=== PATIENT | male | born 1990 | race Caucasian/White ===

== ENCOUNTER 2019-05-04 15:07 | Emergency (ER) | payer SELFPAY ==
[2019-05-04] MEDS: SOD CHLORIDE 0.9% 1,000 ML IV (16:28)
[2019-05-04] MEDS: FAMOTIDINE 20 MG INJ IV (16:28)
[2019-05-04] MEDS: ONDANSETRON 4 MG INJ IV (16:28)
[2019-05-04 16:34] LABS: ADD MAN DIFF? NO
[2019-05-04 16:36] LABS: ABNORMAL IP MESSAGE 1; BASOPHILS % 0.3 % (0.0-2.0); EOSINOPHILS % 0.1 % (0.0-7.0); HEMATOCRIT 43.1 % (42.0-52.0); HEMOGLOBIN 14.6 g/dl (14.0-18.0); LYMPHOCYTES # 0.6 10^3/ul (0.8-2.9); LYMPHOCYTES % 3.9 % (15.0-51.0); MEAN CORPUSCULAR HEMOGLOBIN 30.7 pg (29.0-33.0); MEAN CORPUSCULAR HGB CONC 33.9 g/dl (32.0-37.0); MEAN CORPUSCULAR VOLUME 90.5 fl (82.0-101.0); MEAN PLATELET VOLUME 10.2 fl (7.4-10.4); MONOCYTE # 1.1 10^3/ul (0.3-0.9); MONOCYTES % 7.3 % (0.0-11.0); NEUTROPHIL # 13.3 10^3/ul (1.6-7.5); NEUTROPHILS % 87.9 % (39.0-77.0); PLATELET COUNT 231 10^3/UL (140-415); POSITIVE DIFF @See below; RED BLOOD COUNT 4.76 10^6/ul (4.70-6.10); RED CELL DISTRIBUTION WIDTH 11.5 % (11.5-14.5)
[2019-05-04 16:36] LABS: WHITE BLOOD COUNT 15.1 10^3/ul (4.8-10.8)
[2019-05-04 16:53] LABS: ALANINE AMINOTRANSFERASE 37 IU/L (13-69); ALBUMIN 5.2 g/dl (3.3-4.9); ALBUMIN/GLOBULIN RATIO 1.26; ALKALINE PHOSPHATASE 65 IU/L (42-121); ANION GAP 15 (5-13); ASPARTATE AMINO TRANSFERASE 50 IU/L (15-46); BILIRUBIN,INDIRECT 1.9 mg/dl (0-1.1); BILIRUBIN,TOTAL 1.9 mg/dl (0.2-1.3); BLOOD UREA NITROGEN 14 mg/dl (7-20); CALCIUM 9.8 mg/dl (8.4-10.2); CARBON DIOXIDE 27 mmol/L (21-31); CHLORIDE 104 mmol/L (97-110); CREATININE 1.03 mg/dl (0.61-1.24); Estimated GFR > 60 mL/min (>60); GLUCOSE 100 mg/dl (70-220); LIPASE 60 U/L (23-300); POTASSIUM 4.2 mmol/L (3.5-5.1); SODIUM 146 mmol/L (135-144); TOTAL PROTEIN 9.3 g/dl (6.1-8.1)
== END 2019-05-04 18:38 | disposition home or self-care (01) ==
LOC: FTE 15:07
DX: R11.2 Nausea with vomiting, unspecified (principal); R19.7 Diarrhea, unspecified
CPT/HCPCS: 36415; 80053; 83690; 85025; 96374; 96375; 99284-25